=== PATIENT | male | born 1940 | race Caucasian/White ===

== ENCOUNTER 2018-07-04 14:46 | Outpatient (CLI) | payer MEDICARE, BC ==
--- NOTE | 2018-07-04 17:47 | MRI ---
MRI LUMBAR SPINE WITHOUT IV CONTRAST: HISTORY: A 77-year-old male with a history of M48.061, spinal stenosis of the lumbar region and low back pain radiating to both hips. TECHNIQUE: Multiplanar, multisequence MR examination of the lumbar spine is performed. FINDINGS: The conus medullaris region is unremarkable, terminating at approximately T12-L1. There is severe di sk osteophytosis with multilevel variable severity disk space narrowing and extensive disk osteophyto sis. Moderate levoscoliosis. Approximately 6.9 cm in diameter T2 hyperintense/T1 hypointense focus in the region of the left kidney. Statistically, this is a large renal cyst. At T12-L1, there is ligament and facet hypertrophic changes and desiccation changes without significa nt central canal, lateral recess, foraminal stenosis. At L1-L2, there is diffuse disk osteophytosis with mild central canal and moderate lateral recess elizabeth nosis and bilateral foraminal stenosis, with some associated annular fissures. At L2-L3, there is severe disk space narrowing with moderate central canal and lateral recess and mil d to moderate bilateral foraminal stenosis. At L3-L4, there are some type I endplate changes involving the anterior-inferior aspect of L3. There is some prominent anterior epidural fat noted at the mid L3 vertebral body level. At the L3-L4 disk , there is moderate to severe central canal and lateral recess stenosis and bilateral foraminal steno sis. At L4-L5, there is severe central canal and bilateral recess stenosis, worse on the left side, with m oderate right foraminal stenosis and severe left foraminal stenosis, from severe facet arthrosis. Th ere is also some prominent epidural fat at the L4 vertebral body level, ventrally. At L5-S1, there is diffuse disk osteophytosis with mild central canal and moderate foraminal stenosis . IMPRESSION: 1. Variable severity multilevel canal, lateral recess, and foraminal stenosis, as above. 2. Type I endplate changes involving the inferior aspect of the L3 vertebral body, anteriorly. 3. Some fairly prominent ventral epidural fat at the L4 and L3 vertebral body levels. POS: [facility]
== END 2018-07-04 14:47 | disposition home or self-care (01) ==
LOC: SCSMRI 14:46
PROVIDERS: ATTEND Orthopaedic Surgery
DX: M48.061 Spinal stenosis, lumbar region without neurogenic claudication (principal); M48.07 Spinal stenosis, lumbosacral region
CPT/HCPCS: 72148

== ENCOUNTER 2018-08-22 08:51 | Outpatient (CLI) | payer MEDICARE, BC ==
--- NOTE | 2018-08-22 10:22 | RAD ---
CERVICAL SPINE SERIES 8 VIEWS: History: Chronic neck pain. FINDINGS: The vertebral bodies are normal in height. There is marked disc narrowing at C4-5 and C5-6 as well as C6-7. There is restricted motion of the lower cervical spine in flexion and extension with a minimal anterolisthesis of C3 on C4 developing in flexion. Degenerative facet changes are noted. IMPRESSION: Arthritic changes of the spine as discussed above. POS: [facility]
--- NOTE | 2018-08-22 11:11 | MRI ---
CERVICAL SPINE MRI WITHOUT CONTRAST: Date: 08/22/18 COMPARISON: None. HISTORY: Cervical spondylosis, chronic neck pain. TECHNIQUE: Multiplanar, multisequence MR imaging of the cervical spine provided without contrast. FINDINGS: Sagittal STIR imaging demonstrates no focal area of osseous marrow edema. There is no significant anterolisthesis or retrolisthesis. No prevertebral soft tissue abnormality. Craniocervical junction appears unremarkable. There is moderate degenerative change at the atlantoaxi al interspace. C2-3: Disc space narrowing and disc desiccation with no significant central canal stenosis. Mild franca ateral uncovertebral and facet osteophyte formation with mild bilateral neural foraminal stenosis. C3-4: Disc space narrowing, disc desiccation, and disc bulge with effacement of the ventral thecal s ac. There is a small associated central disc protrusion. This causes a mild-moderate degree of centra l canal stenosis. Moderate bilateral neural foraminal stenosis on the basis of facet and uncovertebra l osteophyte formation. C4-5: Disc space narrowing and disc desiccation. Mild central canal stenosis. Mild facet and uncover tebral osteophyte formation, right greater than left, with moderate right and mild left neural forami nal stenosis. C5-6: Disc space narrowing, disc desiccation, and mild disc bulge with mild central canal stenosis. Bilateral facet and uncovertebral osteophyte formation, right greater than left. Moderate/severe righ t and mild left neural foraminal stenosis. C6-7: Disc space narrowing and disc desiccation noted. No significant central canal stenosis. Mild b ilateral facet and uncovertebral osteophyte formation. Moderate right and mild left neural foraminal stenosis. C7-T1: Disc space narrowing and disc desiccation. No central canal stenosis. Mild bilateral neural f oraminal stenosis on the basis of facet hypertrophy. No focal area of abnormal signal intensity is identified within the cervical cord. IMPRESSION: Multilevel degenerative change within the cervical spine as described above. POS: [facility]
== END 2018-08-22 08:52 | disposition home or self-care (01) ==
LOC: SCSMRI 08:51
PROVIDERS: ATTEND Anesthesiology Pain Medicine
DX: M47.812 Spondylosis without myelopathy or radiculopathy, cervical region (principal); M46.92 Unspecified inflammatory spondylopathy, cervical region
CPT/HCPCS: 72052; 72141

== ENCOUNTER 2018-11-21 16:11 | Outpatient (CLI) | payer MEDICARE, BC ==
--- NOTE | 2018-11-21 16:33 | RAD ---
Lumbar spine 3 views Indication low back pain COMPARISON: MR the lumbar spine dated 07/04/2018 FINDINGS: The multilevel severe disc degenerative disease and facet osteoarthritic changes stable. No abnormal translational motion is demonstrated. There are prominent vascular calcifications involving the abdominal pelvic vasculature. IMPRESSION: Stable severe spondylosis of the lumbar spine. No abnormal translational motion is demons trated.
== END 2018-11-21 16:12 | disposition home or self-care (01) ==
LOC: TBSIIMAG 16:11
PROVIDERS: ATTEND Neurological Surgery
DX: M54.5 Low back pain (principal); M47.816 Spondylosis without myelopathy or radiculopathy, lumbar region
CPT/HCPCS: 72100

== ENCOUNTER 2018-12-21 05:24 | Outpatient (CLI) | payer MEDICARE, BC ==
[2018-12-21 17:27] LABS: Hemoglobin 13.9 g/dL (14.0-18.0); Mean Corpuscular HGB CONC 33.3 g/dL (32.0-36.0); Mean Corpuscular Hemoglobin 29.8 pg (27.0-31.0); Mean Corpuscular Volume 89.6 fL (78.0-98.0); Mean Platelet Volume 8.7 fL (7.4-10.4); Platelet Count 171 thou/uL (130-400); RBC Distribution Width 11.6 % (11.5-14.5); Red Blood Cell (RBC) Count 4.66 mill/uL (4.70-6.10); White Blood Cell (WBC) Count 6.4 thou/uL (4.8-10.8)
[2018-12-21 17:31] LABS: PTT 32.2 SEC (22.9-36.1); Prothrombin Time 13.8 SEC (12.0-14.7)
[2018-12-21 17:44] LABS: Anion Gap 14 mmol/L (10-20); BUN (Urea Nitrogen) 26 mg/dL (8.4-25.7); Calc. Creatinine Clearance 0 mL/min (70-130); Calcium 10.1 mg/dL (7.8-10.44); Carbon Dioxide 22 mmol/L (23-31); Chloride 107 mmol/L (98-107); Estimated GFR-MDRD 36; Glucose 88 mg/dL (83-110); Potassium 4.4 mmol/L (3.5-5.1); Sodium 139 mmol/L (136-145)
== END 2018-12-21 05:25 | disposition home or self-care (01) ==
LOC: LABBT 05:24
PROVIDERS: ATTEND Neurological Surgery
DX: Z01.812 Encounter for preprocedural laboratory examination (principal); M48.061 Spinal stenosis, lumbar region without neurogenic claudication
CPT/HCPCS: 80048; 85027; 85610; 85730

== ENCOUNTER 2018-12-22 09:18 | Inpatient (IN) | payer MEDICARE, BC ==
[2018-12-21 15:19] VITALS: BMI 36.4
--- NOTE | 2018-12-21 21:48 | HP ---
HISTORY OF PRESENT ILLNESS: This is a 78-year-old male who reports to our office for evaluation of low back pain. The patient states that for the last year he has had progressive symptoms of neurogenic claudication due to severe lumbar stenosis. The patient states that he can only stand or walk for 5 minutes to 10 minutes. If he leans or sits, he can then keep going. The patient denies any numbness or tingling. The pain starts at low back and moves into the glutes and hips. He has had injections by Dr. Richter without any benefit. Denies physical therapy, takes tramadol on occasion. The patient also complains of neck pain, injections have helped that. The patient denies radicular symptoms in the cervical spine. He gets tingling on the right of his pinky on the left side, occasionally. REVIEW OF SYSTEMS: A 10-point review of systems has been completed and is negative other than stated in the above HPI. PAST MEDICAL HISTORY: Enlarged prostate, hyperlipidemia, hypertension, seasonal allergies. PAST SURGICAL HISTORY: Right total knee surgery, tonsillectomy, appendectomy, cataract. FAMILY HISTORY: Father is , diagnosed with in no past medical history. Mother is with no past medical history. Two children , 1 in an accident, 1 in hyaline membrane disease. SOCIAL HISTORY: The patient is a nonsmoker. Drinks alcohol rarely. MEDICATIONS: 1. Lisinopril. 2. Flecainide acetate. 3. Amlodipine. 4. Centrum Silver. 5. Aspirin 81 mg. 6. Hydrochlorothiazide. 7. Vitamin D3. ALLERGIES: CELEBREX, HIVES. PHYSICAL EXAMINATION: CONSTITUTIONAL: The patient is alert, oriented x3. Appears nontoxic. NECK: Soft, supple. No masses are noted. Range of motion is intact, nonpainful. RESPIRATIONS: Normal work of breathing on room air. NEUROLOGIC: Awake, alert, oriented x3. Memory, attention, fund of knowledge are normal. Cranial nerves grossly intact. EXTREMITIES: Upper extremities 5/5 strength in deltoids, biceps, triceps, wrist extension, finger extension, finger intrinsics. Sensation equal bilaterally. Reflexes are symmetric. Decreased sensation left pinky compared to the right. Lower extremities 5/5 bilateral strength, hip flexion, knee flexion, knee extension, dorsiflexion, plantar flexion, EHL, no radiculopathy. Single leg raise bilaterally negative. Hip rotation, mild tenderness anterior. Hip with internal rotation on the right. Tender to palpate left SI joint. Deep tendon reflexes diminished bilaterally, lower extremity. Negative Babinski. No clonus. SENSORY: Light touch intact. Gait and station sit to stand, normal. Normal gait. Tandem 2 step side step. IMAGING: MRI lumbar spine, severe stenosis, multilevel and foraminal stenosis. MRI cervical spine, central and right stenosis. ASSESSMENT AND PLAN: Dr. Foss has offered surgery laminectomy for lumbar stenosis with neurogenic claudication. The patient states that he understands the risks and is willing to proceed with the surgery. Job ID: [id number]
[2018-12-22] MEDS ORDERED: Thrombin 5000 UNITS/5 ML VIAL ONE (10:48)
[2018-12-22] MEDS ORDERED: Sodium Chloride 0.9% 20 ML ONE (10:48)
[2018-12-22] MEDS ORDERED: Bupivacaine HCl 0.5%/Epinephrine 1:200,000/PF 30 ml Vial ONE (10:48)
[2018-12-22] MEDS ORDERED: Fentanyl 100 MCG/2 ML VIAL ONE ×3 (11:52→15:59)
[2018-12-22] MEDS ORDERED: ePHEDrine/0.9% NaCl/PF SYRINGE 50 mg/10 ml ONE (13:52)
[2018-12-22] MEDS ORDERED: SUGAMMADEX SODIUM 200 MG/2 ML VIAL ONE (14:42)
[2018-12-22] MEDS ORDERED: Meperidine HCl/PF 25 MG/ML VIAL SLOW IVP PRN (15:04)
[2018-12-22] MEDS ORDERED: Promethazine HCl 25 MG/ML VIAL SLOW IVP PRN (15:04)
[2018-12-22] MEDS ORDERED: Ondansetron HCl/PF 4 MG/2 ML Vial IVP PRN (15:04)
[2018-12-22] MEDS ORDERED: Promethazine HCl 25 MG/ML VIAL IM PRN ×2 (15:04→15:22)
[2018-12-22] MEDS ORDERED: HYDROmorphone 2 MG/ML VIAL SLOW IVP PRN (15:04)
[2018-12-22] MEDS ORDERED: diphenhydrAMINE 25 MG CAP PO PRN (15:22)
[2018-12-22] MEDS ORDERED: Morphine 4 MG/ML VIAL SLOW IVP PRN ×2 (15:22)
[2018-12-22] MEDS ORDERED: Mag-Al 1200 mg/1200 mg/30 ML UDCUP PO PRN (15:22)
[2018-12-22] MEDS ORDERED: Ondansetron PF 4 MG/2 ML Vial IVP PRN (15:22)
[2018-12-22] MEDS ORDERED: Promethazine 25 MG TAB PO PRN (15:22)
[2018-12-22] MEDS ORDERED: Bisacodyl 10 MG SUPP PR PRN (15:22)
[2018-12-22] MEDS ORDERED: Acetaminophen 325 MG TAB PO PRN (15:22)
[2018-12-22] MEDS ORDERED: Acetaminophen/Codeine 30-300mg Tablet PO PRN (15:22)
[2018-12-22] MEDS ORDERED: Tamsulosin HCl 0.4 MG CAP PO PRN (15:22)
[2018-12-22] MEDS ORDERED: Milk Of Magnesia 30 ML UDCUP PO PRN (15:22)
[2018-12-22] MEDS ORDERED: diphenhydrAMINE 50 MG/ML VIAL IVP PRN (15:22)
[2018-12-22] MEDS ORDERED: Tamsulosin HCl 0.4 MG CAP ONE (15:55)
[2018-12-22] MEDS: Sodium Chloride 0.9% 1,000 ML IV SCH (18:36)
[2018-12-22] MEDS: CEFAZOLIN 2 GM in Premix Bag 1 BAG IVPB SCH (20:47)
[2018-12-22] MEDS: Flecainide 50 MG TAB PO SCH (20:47)
[2018-12-22] MEDS: Amlodipine 5 MG TAB PO SCH (20:47)
[2018-12-22] MEDS: tiZANidine HCl 4 MG TAB PO PRN (20:48)
--- NOTE | 2018-12-22 21:46 | OP ---
DATE OF PROCEDURE: 12/22/2018 MUSEUM ATTENDANT: Angélica Camacho PA-C. PREOPERATIVE INDICATION: Treat pain and prevent neurological deterioration. PREOPERATIVE DIAGNOSIS: Multilevel lumbar stenosis with both canal and foraminal disease. POSTOPERATIVE DIAGNOSIS: Multilevel lumbar stenosis with both canal and foraminal disease. OPERATIVE PROCEDURES: Decompressive laminectomy, medial facetectomy and foraminotomy, L2-L3, L3-L4, L4-L5, L5-S1. PREOPERATIVE MEDICATION: Ancef 2 g IV. DRAIN NUMBER: One. DRAIN TYPE: A 10-Romanian Subhash. DESCRIPTION OF PROCEDURE: The patient was brought to the operating room. General endotracheal anesthesia was induced. The patient was positioned prone on the operating table with his chest and hips supported by the appropriate attachments for the Esteban frame. A lateral fluoro radiograph was used to plan our incision. The lumbar skin was sterilely prepped and draped. We opened the incision with a 10 blade knife and we controlled bleeding with bipolar and monopolar cauteries. We used monopolar cautery to dissect through the subcutaneous tissues to the thoracodorsal fascia. We incised the fascia in the midline and we reflected the paraspinal muscles off the spinous process and laminae of L2, L3, L4, L5, and S1. A lateral fluoro radiograph confirmed the levels upon which we were operating. We then used an Adson rongeur to remove the spinous processes and then a high-speed drill to thin the lamina from L2 to L5. Using a Kerrison rongeur, we fashioned a laminectomy down the midline and then we widened our laminectomy defect using Kerrison rongeurs by performing medial facetectomies, removal of medial osteophytes and yellow ligament in the lateral recesses at L2-L3, L3-L4, L4-L5. and L5-S1. We performed foraminotomies over the exiting nerve roots. At the completion of our decompression, a Contreras ball probe could pass through the lateral recess and out the foramina with the L2, L3, L4, L5, and S1 nerve roots bilaterally. We then waxed the bone edges and controlled the epidural bleeding with gentle bipolar cautery. We irrigated copiously with bacitracin irrigation. We treated the wound with vancomycin powder and we left a drain. We closed the wound in anatomical layers. We applied a sterile dressing. This was a clean case, no contamination. Job ID: [id number]
[2018-12-23] MEDS: CEFAZOLIN 2 GM in Premix Bag 1 BAG IVPB SCH ×3 (04:37→20:35)
[2018-12-23] MEDS: Sodium Chloride 0.9% 1,000 ML IV SCH ×3 (04:44→20:35)
--- NOTE | 2018-12-23 07:19 | PRG ---
DATE OF SERVICE: 12/23/2018 This is a neurosurgery progress note. I saw Mr. Laird in his hospital room this morning. He got out of bed once and walked to the bathroom. Has not been on the hallway ambulating yet. He is postop day 1 from long segment lumbar decompression and the hip pain that he described before surgery is better. He has not walked far enough or long enough to get the leg ache that he used to get after 10 minutes of standing. Overnight, the vitals have been stable, but the drain output is significant enough to leave it in. His neurological examination is stable and his hemoglobin is pending. Plan today is to check on the hemoglobin level to leave the drain in until tapers off to an acceptable level with increased mobilization. We can get the drain out this afternoon and he is independent for activities of daily living he might go home, but I would anticipate tomorrow or over the weekend. Job ID: [id number]
[2018-12-23] MEDS: Flecainide 50 MG TAB PO SCH ×2 (09:53→20:38)
[2018-12-23] MEDS: Lisinopril 20 MG TAB PO SCH (09:55)
[2018-12-23] MEDS: Amlodipine 5 MG TAB PO SCH ×2 (09:56→20:37)
[2018-12-23] MEDS: Acetaminophen/Codeine 30-300mg Tablet PO PRN (10:04)
[2018-12-24] MEDS: CEFAZOLIN 2 GM in Premix Bag 1 BAG IVPB SCH ×2 (04:04→11:10)
[2018-12-24] MEDS: Amlodipine 5 MG TAB PO SCH (08:39)
[2018-12-24] MEDS: Lisinopril 20 MG TAB PO SCH (08:39)
[2018-12-24] MEDS: Flecainide 50 MG TAB PO SCH (09:28)
[2018-12-24] MEDS: Acetaminophen/Codeine 30-300mg Tablet PO PRN (11:58)
[2018-12-24] MEDS: tiZANidine HCl 4 MG TAB PO PRN (11:59)
[2018-12-24 12:31] VITALS: BP 124/63; TEMP 97.8
--- NOTE | 2018-12-26 07:49 | DIS ---
DATE OF ADMISSION: 12/22/2018 DATE OF DISCHARGE: 12/24/2018 Mr. Laird is a 78-year-old man admitted to [facility] on December 22, [address] Foss with subsequent discharge on December 24, 2018. His hospital course was uncomplicated by high drainage output for the first 24 hours, ultimately the last 12 hours of his hospital stay, this tapered to 60 mL and drain was pulled. He otherwise tolerated mobility well, and was discharged home in good condition with outpatient followup. Job ID: [id number]
[2018-12-27 10:02] LABS: Actual Bicarbonate (HCO3a) 22.3 mEq/L (22-28); Analyzer IN Cardio OR; Base Excess (BEa) -3.6 mEq/L (-2.0 to +3.0); CO2 Tension 43.4 mmHg (35.0-45.0); Calcium, Ionized 1.19 mmol/L (1.12-1.30); Carboxyhemoglobin (COHb) 0.9 gm% (0.0-3.0); Hemoglobin (Hb) 12.7 g/dL (14.0-18.0); Potassium - ABG Lab 4.43 mmol/L (3.70-5.30); pH, Arterial 7.33 (7.35-7.45)
[2018-12-27 10:21] LABS: O2 Tension (PaO2) 56.7 mmHg (> 70.0); Puncture Site ALINE
== END 2018-12-24 12:30 | disposition home or self-care (01) | DRG 517 ==
LOC: SDC 09:18 → SURG B 17:13
PROVIDERS: ADMIT Neurological Surgery; ATTEND Neurological Surgery
PROC: 01NB0ZZ Release Lumbar Nerve, Open Approach (ICD-10-PCS; principal; 2018-12-22)
DX: M48.062 Spinal stenosis, lumbar region with neurogenic claudication (principal); N40.0 Benign prostatic hyperplasia without lower urinary tract symptoms; E78.5 Hyperlipidemia, unspecified; I10 Essential (primary) hypertension; Z90.89 Acquired absence of other organs; Z90.49 Acquired absence of other specified parts of digestive tract; Z98.49 Cataract extraction status, unspecified eye; Z79.82 Long term (current) use of aspirin; Z88.8 Allergy status to other drugs, medicaments and biological substances
CPT/HCPCS: 36415; 76000; 80048; 85014; 85018; 85027; 85610; 85730; 86850; 86900; 86901; J0131; J0670; J0690; J3010; J3370; J3490

== ENCOUNTER 2021-11-12 13:48 | Outpatient (CLI) | payer MEDICARE, BC | END 2021-11-12 13:49 | disposition home or self-care (01) | LOC: DTY/OP 13:48 | PROVIDERS: ATTEND Internal Medicine | DX: N18.32 Chronic kidney disease, stage 3b (principal); E66.01 Morbid (severe) obesity due to excess calories; Z71.3 Dietary counseling and surveillance; Z68.36 Body mass index [BMI] 36.0-36.9, adult | CPT/HCPCS: 97802 ==

== ENCOUNTER 2022-11-26 13:22 | Outpatient (CLI) | payer MEDICARE, BC | END 2022-11-26 13:23 | disposition home or self-care (01) | LOC: SCSMRI 13:22 | PROVIDERS: ATTEND Anesthesiology Pain Medicine | DX: M48.02 Spinal stenosis, cervical region (principal); M47.812 Spondylosis without myelopathy or radiculopathy, cervical region; M47.813 Spondylosis without myelopathy or radiculopathy, cervicothoracic region; M25.78 Osteophyte, vertebrae; M50.21 Other cervical disc displacement, high cervical region; M50.321 Other cervical disc degeneration at C4-C5 level; M50.221 Other cervical disc displacement at C4-C5 level | CPT/HCPCS: 72141 ==

== ENCOUNTER 2023-05-04 10:40 | Outpatient (CLI) | payer MEDICARE, BC | END 2023-05-04 10:41 | disposition home or self-care (01) | LOC: SCSRAD 10:40 | PROVIDERS: ATTEND Nurse Practitioner Family | DX: R07.81 Pleurodynia (principal); S22.32XA Fracture of one rib, left side, initial encounter for closed fracture ==